=== PATIENT | male | born 1970 | race Caucasian/White ===

== ENCOUNTER → 2021-10-23 10:53 | Outpatient (CLI) | payer OTHER, SELFPAY ==
--- NOTE | 2021-10-23 10:56 | DI.RAD.S_ITS ---
PROCEDURE: XR CHEST 2V INDICATIONS: cough, chest congestion, worsening TECHNIQUE: 2 views of the chest were acquired. COMPARISON: None. FINDINGS: Surgical changes and devices: Likely mitral valve replacement. Lungs and pleura: Lungs are clear. No pleural effusions or pneumothorax. Mediastinum: Mediastinal contours are normal. Heart size is normal. Bones and chest wall: No suspicious bony abnormalities. Soft tissues appear unremarkable. IMPRESSION: No evidence of an acute cardiopulmonary abnormality. Dictated by: Jesus Car D.O. on 10/23/2021 at 10:13 Approved by: Jesus Car D.O. on 10/23/2021 at 10:17
== END ==
PROVIDERS: PCP Internal Medicine; Referring Provider Physician Assistant; Visit Provider Physician Assistant
DX: J06.9 Acute upper respiratory infection, unspecified (principal)
CPT/HCPCS: 71046

== ENCOUNTER 2023-05-06 17:48 | Emergency (ER) | payer OTHER, SELFPAY ==
[2023-05-06] VITALS (20 sets, daily range): BP systolic 129–154; BP diastolic 82–95; PULSE 70–82; RESP 10–19; TEMP 36.9; O2SAT 96–98; BMI 24.3
--- NOTE | 2023-05-06 18:06 | DI.RAD.S_ITS ---
PROCEDURE: XR CHEST 1V INDICATIONS: chest pain TECHNIQUE: One view of the chest was acquired. COMPARISON: [facility], CR, XR CHEST 2V, 10/23/2021, 10:44. FINDINGS: Surgical changes and devices: Sternotomy wires and a cardiac valve prosthesis can be seen. There is a left-sided closure device present. Lungs and pleura: Lungs are clear. No pleural effusions or pneumothorax. Mediastinum: Mediastinal contours appear normal. Heart size is normal. Bones and chest wall: No suspicious bony lesions. Age-appropriate bony degenerative changes are seen. Overlying soft tissues appear unremarkable. IMPRESSION: No acute cardiopulmonary abnormality is seen. Postoperative and degenerative changes are seen. Dictated by: Julián Andersno M.D. on 05/06/2023 at 17:33 Approved by: Julián Anderson M.D. on 05/06/2023 at 17:34
[2023-05-06 18:23] LABS: Add Manual Diff / Slide Review NO; Basophils Absolute Auto 100 /uL (0-100); Basophils Percent Auto 1.5 % (0-2); Eosinophils Absolute Auto 200 /uL (0-450); Eosinophils Percent Auto 3.3 % (2-4); Hematocrit 36.7 % (41-53); Hemoglobin 12.6 g/dL (13.5-17.5); Lymphocytes Absolute Auto 1400 /uL (1100-4500); Lymphocytes Percent Auto 20.9 % (25-40); Mean Corpuscular HGB Conc 34.4 % (30-36); Mean Corpuscular Hemoglobin 30.9 PG (26-34); Mean Corpuscular Volume 89.9 fL (80-100); Monocytes Absolute Auto 700 /uL (0-900); Monocytes Percent Auto 10.7 % (3-14); Neutrophils Absolute Auto 4400 /uL (1500-7000); Neutrophils Percent Auto 63.6 % (50-75); Platelet Count 302 X10^3/uL (150-400); Red Blood Cell Count 4.08 X10^6/uL (4.5-5.9); Red Cell Distribution Width 13.6 % (11.6-14.8); White Blood Cell Count 6.9 X10^3/uL (4.5-11.0)
[2023-05-06 18:27] LABS: Alanine Aminotransferase 25 IU/L (<50); Albumin 4.3 g/dL (3.5-5.0); Albumin Globulin Ratio 1.5 (1.0-2.8); Alkaline Phosphatase 54 U/L (38-126); Aspartate Aminotransferase 27 IU/L (17-59); BUN Creatinine Ratio 15.7 (6-22); Bilirubin Total 0.6 mg/dL (0.2-1.3); Blood Urea Nitrogen 16 mg/dL (9-20); Calcium 9.3 mg/dL (8.4-10.2); Carbon Dioxide 24 mmol/L (22-32); Chloride 97 mmol/L (98-107); Estimated Glomerular Filt Rate > 60 mL/min (>60); Globulin 2.9 g/dL (1.7-4.1); Glucose 90 mg/dL (70-100); HEMOLYSIS < 15 (0-50); Lipase 57 U/L (23-300); Potassium 4.4 mmol/L (3.4-5.1); Sodium 130 mmol/L (137-145); Total Protein 7.2 g/dL (6.3-8.2)
[2023-05-06 18:38] LABS: NT-proBNP (BNP-Adult 18+) 355 pg/mL (<125); Troponin I < 0.012 ng/mL (0.01-0.034)
--- NOTE | 2023-05-06 19:16 | ED.ARRPALP ---
HPI - Arrhythmia/Palpitations General Chief Complaint: Arrhythmia/Palpitations Stated Complaint: something going on with heart rate Time Seen by Provider: 05/06/23 18:05 Source: patient Mode of arrival: Family Vehicle Related Data Previous Rx's Medication Instructions Recorded benzonatate 100 mg capsule 100 mg PO BID-TID PRN cough #14 10/23/21 caps Allergies Allergy/AdvReac Type Severity Reaction Status Date / Time NSAIDS (Non-Steroidal AdvReac Verified 05/06/23 18:09 Anti-Inflamma Penicillins AdvReac Verified 05/06/23 18:09 Patient History Social History Smoking Status: Never smoker Smoking Status: Never smoker alcohol intake frequency: holidays/special occasions only Substance Use Type: marijuana Exam Initial Vital Signs Initial Vital Signs: Vital Signs Pulse Rate 82 05/06/23 17:56 Pulse Oximetry 98 05/06/23 17:56 Course Orders Ordered: ED Orders 05/06/23 18:05 Complete Blood Count AUTO DIFF Stat Comprehensive Metabolic Panel Stat Lipase Stat Magnesium Stat NT-proBNP (BNP-Adult 18+) Stat Troponin I Stat 05/06/23 18:06 XR chest 1V Stat 05/06/23 20:08 EKG-12 Lead Stat 05/06/23 20:13 Trop I [Troponin I] Stat Vital Signs Vital signs: Vital Signs - 8 hr 05/06/23 17:56 05/06/23 18:00 05/06/23 18:00 Temperature Pulse Rate 82 78 Respiratory Rate 14 Blood Pressure 147/94 H Pulse Oximetry 98 98 Oxygen Delivery Method Room Air 05/06/23 18:03 05/06/23 18:15 05/06/23 18:15 Temperature 98.4 F Pulse Rate 77 74 Respiratory Rate 18 15 Blood Pressure 154/94 H 143/87 H Pulse Oximetry 98 98 Oxygen Delivery Method Room Air 05/06/23 18:30 05/06/23 18:30 05/06/23 18:45 Temperature Pulse Rate 73 72 Respiratory Rate 10 L 11 L Blood Pressure 136/84 Pulse Oximetry 96 96 Oxygen Delivery Method Room Air 05/06/23 18:45 05/06/23 19:00 05/06/23 19:00 Temperature Pulse Rate 75 Respiratory Rate 19 Blood Pressure 129/86 130/86 Pulse Oximetry 98 Oxygen Delivery Method Room Air 05/06/23 19:15 05/06/23 19:15 05/06/23 19:30 Temperature Pulse Rate 72 Respiratory Rate 10 L Blood Pressure 134/86 133/85 Pulse Oximetry 97 Oxygen Delivery Method Room Air 05/06/23 19:30 05/06/23 19:45 05/06/23 19:45 Temperature Pulse Rate 71 72 Respiratory Rate 12 15 Blood Pressure 134/87 Pulse Oximetry 97 98 Oxygen Delivery Method 05/06/23 20:00 05/06/23 20:00 05/06/23 20:15 Temperature Pulse Rate 73 72 Respiratory Rate 14 19 Blood Pressure 137/86 Pulse Oximetry 98 98 Oxygen Delivery Method 05/06/23 20:15 05/06/23 20:30 05/06/23 20:30 Temperature Pulse Rate 73 Respiratory Rate 12 Blood Pressure 145/92 H 134/88 Pulse Oximetry 98 Oxygen Delivery Method 05/06/23 20:45 05/06/23 20:45 05/06/23 21:00 Temperature Pulse Rate 72 73 Respiratory Rate 13 14 Blood Pressure 135/82 Pulse Oximetry 98 97 Oxygen Delivery Method 05/06/23 21:00 05/06/23 21:15 05/06/23 21:15 Temperature Pulse Rate 74 Respiratory Rate 12 Blood Pressure 129/83 135/85 Pulse Oximetry 98 Oxygen Delivery Method 05/06/23 21:30 05/06/23 21:30 Temperature Pulse Rate 73 Respiratory Rate 14 Blood Pressure 131/84 Pulse Oximetry 98 Oxygen Delivery Method MDM - Arrhythmia/Palpitations Lab Data 05/06/23 18:05 05/06/23 18:05 Labs: Lab Results 05/06/23 05/06/23 Range/Units 18:05 20:13 WBC 6.9 (4.5-11.0) X10^3/uL RBC 4.08 L (4.5-5.9) X10^6/uL Hgb 12.6 L (13.5-17.5) g/dL Hct 36.7 L (41-53) % MCV 89.9 (80-100) fL MCH 30.9 (26-34) PG MCHC 34.4 (30-36) % RDW 13.6 (11.6-14.8) % Plt Count 302 (150-400) X10^3/uL Neut % (Auto) 63.6 (50-75) % Lymph % (Auto) 20.9 L (25-40) % [place] % (Auto) 10.7 (3-14) % Eos % (Auto) 3.3 (2-4) % Baso % (Auto) 1.5 (0-2) % Neut # (Auto) 4400 (1235-5822) /uL Lymph # (Auto) 1400 (4457-2149) /uL [place] # (Auto) 700 (0-900) /uL Eos # (Auto) 200 (0-450) /uL Baso # (Auto) 100 (0-100) /uL Sodium 130 L (137-145) mmol/L Potassium 4.4 (3.4-5.1) mmol/L Chloride 97 L (98-107) mmol/L Carbon Dioxide 24 (22-32) mmol/L BUN 16 (9-20) mg/dL Creatinine 1.02 (0.66-1.25) mg/dL Estimated GFR > 60 (>60) mL/min BUN/Creatinine Ratio 15.7 (6-22) Glucose 90 (70-100) mg/dL Calcium 9.3 (8.4-10.2) mg/dL Magnesium 2.0 (1.6-2.3) mg/dL Total Bilirubin 0.6 (0.2-1.3) mg/dL AST 27 (17-59) IU/L ALT 25 (<50) IU/L Alkaline Phosphatase 54 (38-126) U/L Troponin I < 0.012 0.012 (0.01-0.034) ng/mL NT-Pro-B Natriuret Pep 355 H (<125) pg/mL Total Protein 7.2 (6.3-8.2) g/dL Albumin 4.3 (3.5-5.0) g/dL Globulin 2.9 (1.7-4.1) g/dL Albumin/Globulin Ratio 1.5 (1.0-2.8) Lipase 57 (23-300) U/L MDM Narrative Medical decision making narrative: CC: Arrhythmia Complicating co-morbidities: Cardiac surgery 7 weeks ago for mechanical valve replacement of his mitral valve. He would previously had a mitral valve repair. There were no coronary abnormalities and no bypasses required. Data collected from: patient Social determinants of health that may influence the patients condition: Patient does live on [facility] Medical records reviewed: No records are available for review today Differential considered: Atrial fibrillation, PVCs, sinus arrhythmia Exam documented above, pertinent findings include: Completely benign exam. His median sternotomy scar appears to be healing nicely. Does have a loud mechanical click no murmurs otherwise. Lab Test results independently reviewed as above. Pertinent findings: Chemistries are unremarkable. Sodium is slightly low at 130. First and 2nd troponin Are both undetectable ProBNP is minimally elevated at 355 Independently reviewed EKst and 2nd EKG are both notable for sinus rhythm nonspecific STT wave changes without any acute ischemia. Imaging studies independently reviewed: Chest x-ray with sternotomy wires and mechanical mitral valve in place with no other abnormalities appreciated Discussion: 53-year-old gentleman with mitral valve disease prior brief episodes of atrial fibrillation and he notes that he did have episode of atrial flutter post surgery that was treated with cardioversion. He currently is on amiodarone and anticoagulated with Coumadin. He is not been having any chest pain, shortness of breath, orthopnea or dyspnea. He was walking [facility] [employer] earlier today and felt that his heart rate was irregular, he checked his pulse and decided to come to the ER for further evaluation. Workup is entirely benign. He has been on telemetry now for almost 5 hours and aside from occasional PVC he has been in unremarkable sinus through the entire visit. All findings with labs and chest x-ray reviewed with him. During our exam he was able to clearly identify some of the abnormal sensations that showed completely normal sinus rhythm while he was on telemetry. He found this reassuring. At this time there is no evidence of atrial fibrillation or flutter, congestive heart failure, acute coronary syndrome, pneumothorax or alternate explanation that would require additional imaging, hospitalization or further workup. He currently is scheduled for follow-up with his vp of customer experience strategy in early May with echocardiogram and Coumadin levels prior to that visit. Will encourage him to keep that. He is safe for discharge Discharge Plan Departure Patient Disposition: Home Clinical Impression: Palpitations, H/O mitral valve replacement with mechanical valve Instructions: DI for Arrhythmias Activity Restrictions/Additional Instructions: Thank you for coming in today Fortunately, your workup is entirely benign. There is no evidence of atrial fibrillation or flutter. You are having an occasional PVC on telemetry during your stay here in the emergency department. Lab work does not suggest acute coronary syndrome or alternate diagnosis that would require hospitalization or additional imaging at this time. If you find that you are continuing to have the sensation palpitations, please give your vp of customer experience strategy call. There are outpatient monitors that can be placed to capture the rhythm. At this time even if you are having small runs of atrial fibrillation is rate controlled and you are appropriately anticoagulated to reduce your risk of stroke. I would encourage you to follow-up with your vp of customer experience strategy as scheduled in May. If you find that you are getting worse or develop any new symptoms, please feel free to return to the emergency department for further evaluation. Prescriptions: No Action benzonatate 100 mg capsule 100 mg PO BID-TID PRN (Reason: cough) Qty: 14 0RF Referrals: Vicente Piedra MD [Primary Care Provider] - Stand Alone Forms: Patient Portal/API
--- NOTE | 2023-05-06 19:22 | PC.NURSE ---
Pt has a history of 2x heart valve replacements, 7 weeks ago he had his mitral valve replaced. Pt states he is feeling better now but still has a little irregularity of his heartbeat. Pt pink, warm, and dry, pulses palpable.
[2023-05-06 20:58] LABS: Troponin I 0.012 ng/mL (0.01-0.034)
== END 2023-05-06 22:35 | disposition home or self-care (01) ==
PROVIDERS: Emergency Provider Emergency Medicine; PCP Internal Medicine
DX: R00.2 Palpitations (principal); Z95.2 Presence of prosthetic heart valve
CPT/HCPCS: 36415; 71045; 80053; 83690; 83735; 83880; 84484; 85025; 93005; 93010; 99283; 99284